=== PATIENT | male | born 1965 | race Caucasian/White ===

== ENCOUNTER 2024-09-16 15:39 | Emergency (ER) | payer BC, SELFPAY ==
[2024-09-16] VITALS (9 sets, daily range): BP systolic 133–158; BP diastolic 55–64; PULSE 65–78; RESP 18–22; TEMP 36.6–36.7; O2SAT 95–99; BMI 33.3
--- NOTE | 2024-09-16 15:56 | EKG12_ITS ---
Test Reason : CP Blood Pressure : */* mmHG Vent. Rate : 75 BPM Atrial Rate : 75 BPM P-R Int : 152 ms QRS Dur : 92 ms QT Int : 390 ms P-R-T Axes : 44 1 31 degrees QTcB Int : 435 ms Normal sinus rhythm Nonspecific ST abnormality Abnormal ECG Confirmed by GENESIS HERCULES, JOSEFINA ([id number]), news assignment editor MARY NINA ([id number]) on 09/20/2024 8:10:37 AM Referred By: Edison Jay Confirmed By: JOSEFINA HURTADO MD
--- NOTE | 2024-09-16 15:56 | ED.VIS.CHEST ---
HPI History of Present Illness Chief Complaint: Chest Pain Detail of Chief Complaint: Upper anterior central chest pressure Onset/Context/Timing Onset: Today and Hours (Onset approximately 10 AM) Activity at onset: sudden Timing: Continuous Quality: Positive for Pressure Location: - (Anterior central upper chest) Current Severity: Moderate Maximum Severity: Moderate Worsened By: - (Walking) Relieved By: Nothing Associated Symptoms: Positive for - (Denies back pain); Negative for Nausea, Vomiting, Diaphoresis, Dyspnea, Cough, Fever, Lightheadedness, Acid Reflux or Palpitations Narrative Narrative: Patient is a 59-year-old male with known dilated aortic root with aortic insufficiency who presents with central anterior chest pressure without radiation or associated symptoms. This started at approximately 10 AM while at rest. He states when he walks it increases in tightness/pressure. He denies any other symptoms when he walks. He denies history of coronary disease. He does have history of hypertension and hypercholesterolemia. He denies history of diabetes or smoking. No significant family history of cardiac disease at a young age. He denies leg pain, swelling discoloration. No history of VTE and he has no risk factors for VTE. He denies intolerance to greasy or fried foods. He denies history of hiatal hernia, reflux, peptic ulcer disease. Prior Similar Symptoms: No Recent Illness/Hospitalization: No CVD Risk Factors: Positive for Hypertension and Hypercholesterolemia; Negative for Diabetes, Family History 1' </=55 or Smoking PE Risk Factors: Negative for Recent Travel/Surgery, Recent Immobilization, Prior DVT or PE, Cancer or OCP + Smoking + >/=35 TAD Risk Factors: Positive for Hypertension; Negative for Marfan's Syndrome or Family History [facility] Medical History Aorta disorder Aortic valve stenosis Home Medications ?Medication ?Instructions ?Recorded ?Last Taken ?Type amlodipine 10 mg-valsartan 320 mg 1 tab PO DAILY 09/16/24 09/15/24 History tablet ascorbic acid (vitamin C) 1,000 mg 1,000 mg PO BID 09/16/24 09/15/24 History tablet,extended release (C Complex) cholecalciferol (vitamin D3) 125 125 mcg PO DAILY 09/16/24 09/15/24 History mcg (5,000 unit) tablet (Vitamin D3) fluticasone propionate 50 2 spray intranasal QHS 09/16/24 09/15/24 History mcg/actuation nasal spray,suspension hydrochlorothiazide 12.5 mg tablet 12.5 mg PO DAILY 09/16/24 09/15/24 History metformin 500 mg tablet 1,000 mg PO BID 09/16/24 09/15/24 History metoprolol succinate 50 mg 50 mg PO DAILY 09/16/24 09/15/24 History tablet,extended release 24 hr multivitamin with iron 1 tab PO DAILY 09/16/24 09/15/24 History omega 6-yme-hus-fish oil 1,200 mg 1 cap PO DAILY 09/16/24 09/15/24 History (144 mg-216 mg) capsule (Fish Oil) rosuvastatin 20 mg tablet 20 mg PO QHS 09/16/24 09/15/24 History zinc gluconate 50 mg tablet 50 mg PO DAILY 09/16/24 09/15/24 History Allergy/AdvReac Type Severity Reaction Status Date / Time No Known Allergies Allergy Verified 09/16/24 15:40 Social History (Updated 09/16/24 @ 18:[address] Edison Jay MD) household members: spouse Smoking Status: Never smoker ROS ROS ED Constitutional Constitutional ED: Denies chills, fever(s) or subjective Eyes Eyes: Reports none ENT ENT ED: Denies ear pain or rhinorrhea Cardiovascular Cardiovascular: Reports as per HPI; Denies orthopnea or paroxysmal nocturnal dyspnea Respiratory/Chest Respiratory/Chest: Denies cough, dyspnea, dyspnea on exertion, orthopnea or paroxysmal nocturnal dyspnea Gastrointestinal Gastrointestinal: Denies abdominal pain, melena, nausea or vomiting Musculoskeletal Musculoskeletal: Denies back pain Integumentary Denies rash Neurologic Neurologic: Denies paresthesias or weakness Hematologic/Lymphatic Hematologic/Lymphatic: Denies easy bleeding or easy bruising EXAM Physical Exam Const Vital Signs: 09/16/24 15:40 09/16/24 16:06 09/16/24 16:34 Temperature 97.9 F Temperature Source Temporal Pulse Rate 78 Respiratory Rate 22 H Blood Pressure 158/64 H 136/55 H Blood Pressure Mean 95 Pulse Ox 99 Oxygen Delivery Method Room Air Room Air 09/16/24 16:35 09/16/24 16:42 09/16/24 16:43 Temperature Temperature Source Pulse Rate 75 70 Respiratory Rate 18 Blood Pressure 136/55 H 136/55 H 136/55 H Blood Pressure Mean 82 Pulse Ox 95 Oxygen Delivery Method Room Air 09/16/24 17:00 09/16/24 18:00 09/16/24 19:00 Temperature Temperature Source Pulse Rate 69 67 65 Respiratory Rate 18 22 H 20 H Blood Pressure 141/60 H 139/64 H 133/57 H Blood Pressure Mean 87 89 82 Pulse Ox 97 97 96 Oxygen Delivery Method Room Air Room Air Vital signs were reviewed. Blood pressure is slightly elevated. Did improve after nitro. His chest discomfort improved minimally at best Positive well nourished and well developed Constitutional Narrative: BMI is 33.4. General Appearance ED: well developed and NAD HEENT Reports moist mucous membranes normocephalic and atraumatic Eyes PERRL and EOMs intact bilaterally Neck no lymphadenopathy, supple and no JVD Chest Wall inspection of chest normal and palpation of chest normal Resp normal respiratory effort and clear to auscultation bilaterally Effort and Inspection: pain with movement; Negative for respiratory distress Cardio regular rate, regular rhythm, S1 normal heart sound, S2 normal heart sound and no murmurs Peripheral Pulses: pulses 2+ throughout GI normal to inspection, nondistended, normoactive bowel sounds, soft to palpation, non-tender, non-distended and no masses; Negative for hepatosplenomegaly Extremity normal to inspection Extremity Narrative: There is no asymmetry, swelling, discoloration, leg vein distention, palpable cords or tenderness along the distribution of the deep venous system. Neuro CN's II-XII intact bilaterally Sensorium / Orientation: awake and alert Psych mental status grossly normal Skin no rashes or lesions noted and no wounds Heart Score History: Slightly/Non-Suspicious ECG: Normal Age: >45 - <65 years Risk Factors: 1 or 2 Risk Factors Troponin: </= Normal Limit Score: 2 MDM MDM MDM Narrative Medical decision making narrative: Differential diagnosis is cardiac versus noncardiac. Noncardiac would include esophageal spasm, esophagitis, reflux, peptic ulcer disease, hiatal hernia, biliary disease and pulmonary disease. EKG, chest x-ray appropriate blood work including 2-hour troponin was obtained. Lab Data Attestation: I reviewed the patient's lab results. Lab results narrative: White count slightly elevated 13.9 with no shift. Basic metabolic panel was elevated BUN/creatinine 23 and 1.31 with an estimated GFR 59. Glucose is elevated 195. First troponin is normal at 13. 2-hour troponin is 13 with a delta of 0. Patient's heart score is 2. Patient is a candidate for outpatient follow-up. Will discharge to home. Labs: Laboratory Results - last 24 hr 09/16/24 09/16/24 15:50 18:01 WBC 13.9 H RBC 4.97 Hgb 15.6 Hct 44.3 MCV 89.1 MCH 31.4 MCHC 35.2 RDW Std Deviation 40.8 RDW Coeff of [place] 12.6 Plt Count 238 MPV 9.3 Immature Gran % (Auto) 0.300 Neut % (Auto) 67.2 Lymph % (Auto) 21.0 [place] % (Auto) 8.6 Eos % (Auto) 2.1 Baso % (Auto) 0.8 Absolute Neuts (auto) 9.3 H Absolute Lymphs (auto) 2.92 Nucleated RBC % 0 Sodium 139 Potassium 3.5 Chloride 103 Carbon Dioxide 28.0 Anion Gap 7 BUN 23 H Creatinine 1.31 H Estim Creat Clear Calc 76.39 Est GFR (MDRD) Af Amer 72 Est GFR (MDRD) Non-Af 59 L BUN/Creatinine Ratio 17.6 Glucose 195 H Calcium 10.3 H Troponin I High Sens 13 13 Radiography Chest X-Ray - ED: 1 View and Read by ED Physician (Aorta appears tortuous. Cardiac silhouette size normal. Lung parenchyma is normal. Osseous structures reveal no acute process. This is independently reviewed interpreted by me.) Diagnostic Testing: Clinical Impression(s) from Imaging Studies Chest X-Ray 09/16/24 16:00 IMPRESSION: No acute cardiopulmonary process. Reading Location: [facility] Discharge Plan Triage Chief Complaint: Chest Pain ED Provider: Edison Jay Dx/Rx/DC Orders Clinical Impression: Central chest pain, Elevated blood pressure reading with diagnosis of hypertension, Hypercholesterolemia Instructions: ED Chest Pain, Noncardiac Prescriptions: No Action metformin 500 mg tablet 1,000 mg PO BID fluticasone propionate 50 mcg/actuation spray,suspension 2 spray INTRANASAL QHS hydrochlorothiazide 12.5 mg tablet 12.5 mg PO DAILY amlodipine-valsartan 10-320 mg tablet 1 tab PO DAILY rosuvastatin 20 mg tablet 20 mg PO QHS zinc gluconate 50 mg tablet 50 mg PO DAILY omega 8-alr-pzb-fish oil [Fish Oil] 1,200 (144-216) mg capsule 1 cap PO DAILY cholecalciferol (vitamin D3) [Vitamin D3] 125 mcg (5,000 unit) tablet 125 mcg PO DAILY C Complex 1,000 mg tablet extended release 1,000 mg PO BID metoprolol succinate 50 mg tablet extended release 24 hr 50 mg PO DAILY multivitamin with iron Tablet 1 tab PO DAILY Primary Care Provider: Jeffrey Bonilla Referrals: Jeffrey Bonilla DO [Primary Care Provider] - 3-5 Days Print Language: Lao Disposition Disposition: Home, Self Care
--- NOTE | 2024-09-16 16:00 | RAD_ITS ---
EXAM: XR Chest, 1 View CLINICAL INDICATION: TECHNIQUE: Frontal view of the chest. COMPARISON: No relevant prior studies available. FINDINGS: LUNGS AND PLEURAL SPACES: Unremarkable. No consolidation. No pneumothorax. HEART: Unremarkable. No cardiomegaly. MEDIASTINUM: Unremarkable. Normal mediastinal contour. BONES/JOINTS: Unremarkable. No acute fracture. RAD/Chest 1 View (Portable) IMPRESSION: No acute cardiopulmonary process. Reading [facility]
[2024-09-16 16:20] LABS: Absolute Lymphocyte Count 2.92 X10^3/uL (0.83-4.51); Absolute Neutrophil Count 9.3 X10^3/uL (2.0-7.7); Basophil# 0.11 X10^3/uL; Basophil% 0.8 % (0-1); Eosinophil# 0.29 X10^3/uL; Eosinophils% 2.1 % (0-5); Hematocrit 44.3 % (40-54); Hemoglobin 15.6 g/dL (13.0-16.5); Lymphocyte # 2.92 X10^3/ul (0.83-4.51); Mean Corp Hgb Conc 35.2 g/dL (32-36); Mean Corpuscular Hgb 31.4 pg (27.0-32.0); Mean Corpuscular Volume 89.1 fL (80-94); Mean Platelet Vol. 9.3 fl (6.2-12.0); Monocyte% 8.6 % (0-10); NRBC Flagged by Analyzer 0 % (0-5); Neutrophil # 9.32 X10^3/uL (2.7-7.7); Neutrophil % 67.2 % (47-70); Platelet Count 238 K/mm3 (150-450); RBC Distribution Width CV 12.6 % (11.6-14.6); RBC Distribution Width SD 40.8 fl (35.1-43.9); Red Blood Count 4.97 M/mm3 (4.6-6.2); White Blood Count 13.9 K/mm3 (4.4-11.0)
[2024-09-16] MEDS: Aspirin 81 MG TAB.CHEW 324 MG PO (16:26)
[2024-09-16] MEDS: Nitroglycerin SL (ED/IMG/CATH) 0.4 MG TABLET SL ×3 (16:34→16:42)
[2024-09-16 16:38] LABS: Anion Gap 7 (5-15); BUN 23 mg/dL (7-18); BUN/Creat Ratio 17.6 RATIO (10-20); Calcium,Total 10.3 mg/dL (8.5-10.1); Chloride 103 mmol/L (98-107); Creatinine, Serum 1.31 mg/dL (0.70-1.30); EST Glomerular Filtration Rate 59 mL/min (>60); Est Glom Filt Rate - Afr Amer 72 mL/min (>60); Estimated Creatinine Clearance 76.39 ml/min; Glucose 195 mg/dL (74-106); Potassium 3.5 mmol/L (3.5-5.1); Sodium Level 139 mmol/L (136-145); Troponin-I HS (w/2H Reflex) 13 pg/mL (3.0-78.0)
[2024-09-16 18:09] LABS: Reflex Troponin-HS? (from REC) Y
[2024-09-16 18:52] LABS: Troponin-I HS 13 pg/mL (3.0-78.0)
== END 2024-09-16 19:48 | disposition home or self-care (01) ==
PROVIDERS: Emergency Provider Emergency Medicine; PCP Student in an Organized Health Care Education/Training Program; Referring Provider Emergency Medicine; Visit Provider Emergency Medicine
DX: R07.89 Other chest pain (principal); E78.00 Pure hypercholesterolemia, unspecified; I35.2 Nonrheumatic aortic (valve) stenosis with insufficiency; R03.0 Elevated blood-pressure reading, without diagnosis of hypertension
CPT/HCPCS: 71045; 80048; 84484; 85025; 93005; 99284; A4216